=== PATIENT | male | born 1950 | race Caucasian/White ===

== ENCOUNTER 2017-03-02 09:55 | Inpatient (IN) | payer MEDICARE, OTHER ==
[2017-03-02] VITALS (20 sets, daily range): BP systolic 98–136; BP diastolic 70–93; PULSE 74–183; RESP 16–23; TEMP 97.9–98.6; O2SAT 91–98
[~2017-03-02] VITALS: Ht 170.2 cm; Wt 73.3 kg
[~2017-03-02 09:55] MED LIST: ALBU17I INH; AMBI10TA PO; EFFE150C PO; MEDR4PAK3 PO; OMEP20CA5 PO; ZITH250T PO
[2017-03-02] MEDS ORDERED: FLUO40CA PO (10:15)
[2017-03-02] MEDS ORDERED: RANI150T PO (10:15)
[2017-03-02] MEDS ORDERED: VENTAER INH (10:15)
[2017-03-02] MEDS ORDERED: MONT10TA4 PO (10:15)
[2017-03-02] MEDS ORDERED: FERR325T18 PO (10:15)
[2017-03-02] MEDS ORDERED: LEVO25TA4 PO (10:15)
[2017-03-02] MEDS ORDERED: SODIUM CHLORIDE 0.9% FLUSH 10 ML FLUSH IVF PRN (10:45)
[2017-03-02] MEDS ORDERED: methylPREDNISolone SOD SUCC 125 MG/2 ML VIAL IV PUSH ONE ×2 (10:45)
[2017-03-02 11:02] LABS: AUTOMATED NEUTROPHIL # 13.2 TH/MM3 (1.8-7.7); BASOPHIL # 0.1 TH/MM3 (0-0.2); BASOPHIL % 0.5 % (0.0-2.0); EOSINOPHIL # 0.3 TH/MM3 (0-0.4); EOSINOPHIL % 1.9 % (0.0-4.0); HEMATOCRIT 41.6 % (39.0-51.0); HEMO FLAGS DIFF FINAL; LYMPH % 5.5 % (9.0-44.0); LYMPHOCYTE # 0.9 TH/MM3 (1.0-4.8); MEAN CELL VOLUME 83.8 FL (80.0-100.0); MEAN CORPUSCULAR HEMOGLOBIN 27.4 PG (27.0-34.0); MEAN CORPUSCULAR HGB CONC 32.7 % (32.0-36.0); MONO % 6.7 % (0.0-8.0); NEUT % 85.4 % (16.0-70.0); PLATELET COUNT 618 TH/MM3 (150-450); RED BLOOD COUNT 4.96 MIL/MM3 (4.50-5.90); RED CELL DISTRIBUTION WIDTH 12.1 % (11.6-17.2); WHITE BLOOD COUNT 15.5 TH/MM3 (4.0-11.0)
--- NOTE | 2017-03-02 11:06 | RADRPT ---
EXAM DATE/TIME: 03/02/2017 10:57 [facility] COMPARISON: No previous studies available for comparison. INDICATIONS : Short of breath. Right chest pain. MEDICAL HISTORY : Chronic obstructive pulmonary disease. Asthma. SURGICAL HISTORY : None. ENCOUNTER: Initial ACUITY: 3 days PAIN SCORE: 4/10 LOCATION: Right chest FINDINGS: Hazy opacity in the right mid to lower lung zones. Cardiomediastinal contours are within normal limit s. Bony thorax is intact. CONCLUSION: 1. Probable small right pleural effusion with associated right lower lobe airspace disease, presumabl y compressive atelectasis. Consider formal PA and lateral views of chest for better evaluation. Damian Salamanca MD on March 02, 2017 at 11:03 Board Certified Radiologist. This report was verified electronically.
[2017-03-02] MEDS: RESP: ALBUTEROL 2.5 MG/IPRATROPIUM 0.5 MG NEB (SCH) INH (11:10)
[2017-03-02 11:12] LABS: CHLORIDE 101 MEQ/L (98-107); POTASSIUM 3.6 MEQ/L (3.5-5.1); SODIUM (NA) 136 MEQ/L (136-145)
[2017-03-02 11:16] LABS: ANION GAP 9 MEQ/L (5-15); BICARBONATE 26.3 MEQ/L (21.0-32.0); BLOOD UREA NITROGEN 16 MG/DL (7-18)
[2017-03-02 11:19] LABS: ALT (GPT) 11 U/L (12-78); AST (GOT) 11 U/L (15-37); GLOMERULAR FILTRATION RATE 67 ML/MIN (>89)
[2017-03-02 11:21] LABS: TOTAL BILIRUBIN ADULT 0.4 MG/DL (0.2-1.0)
[2017-03-02 11:22] LABS: ALKALINE PHOSPHATASE 85 U/L (45-117)
--- NOTE | 2017-03-02 11:38 | PD ---
HPI Chief Complaint: Respiratory Symptoms Time Seen by Provider: 10:25 Travel History International Travel<30 days: No Contact w/Intl Traveler<30days: No Traveled to known affect area: No History of Present Illness HPI This is a 66-year-old male who presents to the emergency department with shortness of breath it's been going on for 3 days, constant, moderate severity, worse with exertion and improved with rest. He says he feels like he has bronchitis. He is a nonproductive cough. He denies any fevers or chills. He says he's had bronchitis in the past and it flares up from time to time. He also recently drove from [place] to come visit his family for Thanksgiving. He is reporting right sided pleuritic chest pain, intermittent, and his says he's been clutching his back and his right flank. PFSH Past Medical History Asthma: Yes Depression: Yes Cancer: No COPD: Yes Diabetes: No Diminished Hearing: No GERD: Yes Glaucoma: No Hepatitis: No Hiatal Hernia: No Hypertension: No Respiratory: Yes (Asthma) Thyroid Disease: Yes Influenza Vaccination: No Past Surgical History Abdominal Surgery: Yes (INGUINAL HERNIA REPAIR) Other Surgery: Yes (RT GROIN REPAIR A CHILD) Social History Alcohol Use: No Tobacco Use: No Substance Use: No Allergies-Medications (Allergen,Severity, Reaction): Coded Allergies: No Known Allergies (Verified Allergy, Mild, 03/02/17) Reported Meds & Prescriptions Reported Meds & Active Scripts Active Reported Ranitidine (Ranitidine HCl) 150 Mg Tab 150 Mg PO DAILY Fluoxetine (Fluoxetine HCl) 40 Mg Cap 40 Cap PO DAILY Ventolin Hfa 18 GM Inh (Albuterol Sulfate) 90 Mcg/Act Aer 2 Puff INH Q4-6H PRN Montelukast (Montelukast Sodium) 10 Mg Tab 10 Mg PO HS Ferrous Sulfate 325 Mg (65 Mg Iron) Tablet 325 Mg PO DAILY Levothyroxine (Levothyroxine Sodium) 25 Mcg Tab 25 Mcg PO DAILY Review of Systems Except as stated in HPI: all other systems reviewed are Neg Physical Exam Narrative GENERAL:Well appearing, no acute distress SKIN: Focused skin assessment warm and dry. HEAD: Atraumatic. Normocephalic. EYES: Pupils equal and round. No injection or drainage. ENT: Moist mucous membranes NECK: Trachea midline. CARDIOVASCULAR: Regular rate and rhythm. No murmur appreciated. RESPIRATORY: Rales in the right lower lung with diminished breath sounds on the right. No tachypnea or increased work of breathing. GASTROINTESTINAL: Abdomen soft, non-tender, nondistended. MUSCULOSKELETAL: No obvious deformities. NEUROLOGICAL: Awake and alert. No obvious cranial nerve deficits. Moving all extremities. PSYCHIATRIC: Appropriate mood and affect; insight and judgment normal. Data Data Last Documented VS Vital Signs Date Time Temp Pulse Resp B/P (MAP) Pulse Ox O2 Delivery O2 Flow Rate FiO2 03/02/17 12:53 96 16 120/86 (97) 95 Nasal Cannula 2.00 03/02/17 09:57 97.9 Orders Orders Complete Blood Count With Diff (03/02/17 10:34) Comprehensive Metabolic Panel (03/02/17 10:34) D-Dimer (03/02/17 10:34) Iv Access Insert/Monitor (03/02/17 10:34) Ecg Monitoring (03/02/17 10:34) Oximetry (03/02/17 10:34) Oxygen Administration (03/02/17 10:34) Chest, Single Ap (03/02/17 10:34) Sodium Chloride 0.9% Flush (Ns Flush) (03/02/17 10:45) Methylprednisolone So Succ Inj (Solumedr (03/02/17 10:45) Methylprednisolone So Succ Inj (Solumedr (03/02/17 10:45) Albuterol-Ipratropium Neb (Duoneb Neb) (03/02/17 10:45) Ct Pulmonary Angiogram (03/02/17 ) Iohexol 350 Inj (Omnipaque 350 Inj) (03/02/17 11:58) B-Type Natriuretic Peptide (03/02/17 12:12) Lactic Acid (03/02/17 12:18) Blood Culture (03/02/17 12:18) Cefepime Inj (Maxipime Inj) (03/02/17 12:30) Azithromycin (Zithromax) (03/02/17 12:30) Electrocardiogram (03/02/17 ) Metoprolol Tartrate Inj (Lopressor Inj) (03/02/17 12:45) Admit Order (Ed Use Only) (03/02/17 12:54) Labs Laboratory Tests Test 03/02/17 10:50 03/02/17 12:30 White Blood Count 15.5 TH/MM3 Red Blood Count 4.96 MIL/MM3 Hemoglobin 13.6 GM/DL Hematocrit 41.6 % Mean Corpuscular Volume 83.8 FL Mean Corpuscular Hemoglobin 27.4 PG Mean Corpuscular Hemoglobin Concent 32.7 % Red Cell Distribution Width 12.1 % Platelet Count 618 TH/MM3 Mean Platelet Volume 7.8 FL Neutrophils (%) (Auto) 85.4 % Lymphocytes (%) (Auto) 5.5 % Monocytes (%) (Auto) 6.7 % Eosinophils (%) (Auto) 1.9 % Basophils (%) (Auto) 0.5 % Neutrophils # (Auto) 13.2 TH/MM3 Lymphocytes # (Auto) 0.9 TH/MM3 Monocytes # (Auto) 1.0 TH/MM3 Eosinophils # (Auto) 0.3 TH/MM3 Basophils # (Auto) 0.1 TH/MM3 CBC Comment DIFF FINAL Differential Comment D-Dimer Quantitative (PE/DVT) 1.93 MG/L FEU Blood Urea Nitrogen 16 MG/DL Creatinine 1.10 MG/DL Random Glucose 98 MG/DL Total Protein 6.8 GM/DL Albumin 2.4 GM/DL Calcium Level 8.6 MG/DL Alkaline Phosphatase 85 U/L Aspartate Amino Transf (AST/SGOT) 11 U/L Alanine Aminotransferase (ALT/SGPT) 11 U/L Total Bilirubin 0.4 MG/DL Sodium Level 136 MEQ/L Potassium Level 3.6 MEQ/L Chloride Level 101 MEQ/L Carbon Dioxide Level 26.3 MEQ/L Anion Gap 9 MEQ/L Estimat Glomerular Filtration Rate 67 ML/MIN Lactic Acid Level 3.1 mmol/L B-Type Natriuretic Peptide 8 PG/ML [facility] Medical Decision Making Medical Screen Exam Complete: Yes Emergency Medical Condition: Yes Interpretation(s) EKG: EKG: Sinus tachycardia with no ST changes Leukocytosis of 15 with 85% neutrophils Lactic acid is 3.1 D-dimer is 1.9 Last 24 hours Impressions Chest X-Ray 03/02/17 1034 Signed Impressions: Service Date/Time: Thursday, March 02, 2017 10:57 - CONCLUSION: 1. Probable small right pleural effusion with associated right lower lobe airspace disease , presumably compressive atelectasis. Consider formal PA and lateral views of chest for better evaluation. Damian Salamanca MD CT Angiography 03/02/17 0000 Signed Impressions: Service Date/Time: Thursday, March 02, 2017 11:49 - CONCLUSION: Moderate size right pleural effusion with adjacent passive atelectasis. No evidence for pulmonary embolism. Fadi Lopez MD Differential Diagnosis Pneumonia, pulmonary embolism, COPD exacerbation, congestive heart failure, malignancy Narrative Course This is a 66-year-old male who presents to the emergency department with increasing cough, shortness of breath and chest pain mostly on the right side of his chest. He was placed on a monitor and an IV was established. He is found to be tachycardic and slightly hypoxic. He was given serial bronchodilator treatments and his symptoms improved some. Labs demonstrate a leukocytosis and a lactic acid of 3.1 with a normal BNP. He was given 2 L of IV fluid, cultures were obtained and he was given cefepime and azithromycin. He also had 3 short episodes of narrow complex tachycardia in the emergency department. I administered 5 mg of IV metoprolol and the symptoms subsided. CT imaging demonstrates a moderate sized pleural effusion on the right. Patient has a history of histoplasmosis as a child and he has recurrent infections in the right lung. I think the patient requires continued antibiotic therapy, telemetry, and a thoracentesis as an inpatient. He will be admitted to Dr. Guadarrama. Critical Care Narrative Aggregate critical care time was 40 minutes. Time to perform other separately billable procedures was not included in the critical care time. My time did not include minutes spent treating any other patients simultaneously or on activities that did not directly contribute to the patient's treatment. The services I provided to this patient were to treat and/or prevent clinically significant deterioration that could result in: Disability, I provided critical care services requiring my management, as noted below: Chart data review, documentation time, medication orders and management, vital sign assessments/reviewing monitor data, ordering and reviewing lab tests, ordering and interpreting/reviewing x-rays and diagnostic studies, care of the patient and discussion of the patient with the admitting physicians. Diagnosis Primary Impression: Pleural effusion Additional Impression: SVT (supraventricular tachycardia) Admitting Information Admitting Physician Requests: Admit Jo Ann Caceres MD Mar 02, 2017 11:38
[2017-03-02] MEDS ORDERED: IOHEXOL 350 MG/ML 10 ML VIAL (for RAD DIAG) IVCONTRAST ONE (11:58)
--- NOTE | 2017-03-02 12:12 | RADRPT ---
EXAM DATE/TIME: 03/02/2017 11:49 [facility] COMPARISON: No previous studies available for comparison. INDICATIONS : Short of breath. Right chest pain. IV CONTRAST: 75 cc Omnipaque 350 (iohexol) IV RADIATION DOSE: 15.32 CTDIvol (mGy) MEDICAL HISTORY : Chronic obstructive pulmonary disease. Gastroesophageal reflux disease. Asthma. Histoplasmosis. SURGICAL HISTORY : Inguinal hernia repair. ENCOUNTER: Initial ACUITY: 2 days PAIN SCALE: 4/10 LOCATION: Right chest TECHNIQUE: Volumetric scanning of the chest was performed using a pulmonary embolism protocol MIP images were re constructed. Using automated exposure control and adjustment of the mA and/or kV according to patien t size, radiation dose was kept as low as reasonably achievable to obtain optimal diagnostic quality images. DICOM format image data is available electronically for review and comparison. Follow-up recommendations for detected pulmonary nodules are based at a minimum on nodule size and pa tient risk factors according to Fleischner Society Guidelines. FINDINGS: PULMONARY ARTERIES: No filling defects are seen in the pulmonary arteries through the segmental level. LUNGS: There is no consolidation or pneumothorax other than passive atelectasis right lung base. No concern ing pulmonary nodule is visualized. PLEURAE: There is no pleural thickening but there is a large right pleural effusion. MEDIASTINUM: There is good visualization of the great vessels of the middle mediastinum. No evidence of mediastin al or hilar adenopathy/mass. MUSCULOSKELETAL: Within normal limits for patient age. MISCELLANEOUS: The visualized upper abdominal organs demonstrate no acute abnormality. Moderate hiatal hernia CONCLUSION: Moderate size right pleural effusion with adjacent passive atelectasis. No evidence for pulmonary emb olism. Fadi Lopez MD on March 02, 2017 at 12:09 Board Certified Radiologist. This report was verified electronically.
[2017-03-02] MEDS ORDERED: CEFEPIME INJ 2,000 MG in SODIUM CHLORIDE 0.9% INJ 100 ML IV ONE (12:30)
[2017-03-02] MEDS ORDERED: AZITHROMYCIN 250 MG TAB PO ONE (12:30)
[2017-03-02] MEDS ORDERED: METOPROLOL TARTRATE 5 MG/5 ML VIAL IV PUSH ONE (12:45)
[2017-03-02] MEDS ORDERED: ONDANSETRON HCL 4 MG/2 ML VIAL IV PUSH ONE (13:15)
[2017-03-02] MEDS ORDERED: SODIUM CHLOR 0.9% 1000 ML INJ 1,000 ML IV ONE ×2 (13:15)
[2017-03-02] MEDS ORDERED: SODIUM CHLORIDE 0.9% FLUSH 10 ML FLUSH IV FLUSH PRN (13:30)
--- NOTE | 2017-03-02 13:43 | HHI.HP ---
HPI Service [facility] Primary Care Physician Non-Staff Admission Diagnosis svt, pleural effusion Diagnoses: (1) Sepsis Diagnosis: Principal (2) Leucocytosis Diagnosis: Principal (3) Pleural effusion Diagnosis: Principal (4) SVT (supraventricular tachycardia) Diagnosis: Principal Chief Complaint: Patient brought in by his is they're worried about his respiratory status Travel History International Travel<30 Days: No Contact w/Intl Traveler <30 Da: No Traveled to Known Affected Are: No History of Present Illness Written by Bienvenido Rachel, acting as scribe for Dr. Guadarrama on 03/02/17 at 13 :43. 66-year-old male with known history of childhood histoplasmosis, chronic obstructive pulmonary disease, hypothyroidism who was brought to the hospital by his because she did not like the way he looked. Patient is down here visiting family for the last 3 days from [place]. The patient indicates that his noticed that he was not sleeping well last night and I just way he looked she knew something was wrong so she brought him to the hospital for evaluation. The patient indicates that he does have childhood histoplasmosis and does get upper respiratory infections approximately every other year. Patient denies any symptoms to include fever, chills, runny nose, sore throat, abdominal pain, diarrhea. Patient states that he has had right sided rib pain for the last 3 days. He has had a dry nonproductive cough. Patient denied any actual anterior chest pain, radiation of pain, nausea, vomiting, diaphoresis. Patient has chronic shortness of breath and dyspnea and does not indicate any worsening. He does use a nebulizer at home on a regular basis for the last 3 months. Patient is not on any outpatient oxygen. Review of Systems Respiratory: COMPLAINS OF: Cough Cardiovascular: COMPLAINS OF: Chest pain Except as stated in HPI: all other systems reviewed are Neg Past Family Social History Past Medical History Histoplasmosis Hypothyroidism Anxiety depression Chronic obstructive pulmonary disease Past Surgical History Inguinal hernia repair Right ankle surgery Reported Medications Reported Meds & Active Scripts Active Reported Ranitidine (Ranitidine HCl) 150 Mg Tab 150 Mg PO DAILY Fluoxetine (Fluoxetine HCl) 40 Mg Cap 40 Cap PO DAILY Ventolin Hfa 18 GM Inh (Albuterol Sulfate) 90 Mcg/Act Aer 2 Puff INH Q4-6H PRN Montelukast (Montelukast Sodium) 10 Mg Tab 10 Mg PO HS Ferrous Sulfate 325 Mg (65 Mg Iron) Tablet 325 Mg PO DAILY Levothyroxine (Levothyroxine Sodium) 25 Mcg Tab 25 Mcg PO DAILY Allergies: Coded Allergies: No Known Allergies (Verified Allergy, Mild, 03/02/17) Family History Reviewed is significant for mother with dementia Social History Patient states that he smoked a long time ago and only for very short period time. Denies any alcohol or illicit drugs Physical Exam Vital Signs Vital Signs Date Time Temp Pulse Resp B/P (MAP) Pulse Ox O2 Delivery O2 Flow Rate FiO2 03/02/17 13:00 96 16 118/78 (91) 95 Nasal Cannula 2.00 03/02/17 12:53 96 16 120/86 (97) 95 Nasal Cannula 2.00 03/02/17 12:44 123 03/02/17 12:41 177 16 119/76 (90) 91 03/02/17 12:20 118 18 103/70 (81) 93 Room Air 03/02/17 12:10 183 03/02/17 11:02 100 17 115/80 (92) 95 Room Air 03/02/17 10:52 Room Air 03/02/17 10:52 94 Room Air 03/02/17 10:52 91 18 131/93 (106) 94 Room Air 03/02/17 10:10 95 Room Air 03/02/17 09:57 97.9 115 16 121/88 (99) 94 Physical Exam GENERAL: Well-developed, well-nourished, in no acute distress. alert and orientated HEENT: Head is normocephalic without any lesions or masses noted. Facial features are symmetric. Eyes: Pupils equal round reactive to light. Extraocular muscles are intact. Conjunctivae were clear. Oropharyngeal: Pharynx without any erythema edema. Tongue is midline without deviation. Buccal mucosa is moist without any masses or lesions NECK: Supple without any masses. Trachea midline no deviation. No JVD, no bruits are appreciated CARDIAC: Regular rhythm, regular rate. S1/S2 are heard. No murmurs gallops or rubs. LUNGS: Diminished breath sounds noted right lower lung field. Clear to auscultation bilaterally. No wheeze, rhonchi or rales. No use of accessory muscles on inspiration or expiration. ABDOMEN: Soft, nontender. Nondistended. Bowel sounds heard in all 4 quadrants. No organomegaly or masses. Negative rebound, negative guarding EXTREMITIES: No edema, pulses are equal bilaterally. No cyanosis or clubbing NEUROLOGY: Mood and affect appear appropriate. Cranial nerves II through XII grossly intact. Muscle strength 5/5 in upper and lower extremities bilaterally. Deep tendon reflexes are 2+ in upper and lower extremities bilaterally. Laboratory Laboratory Tests Test 03/02/17 10:50 03/02/17 12:30 White Blood Count 15.5 Red Blood Count 4.96 Hemoglobin 13.6 Hematocrit 41.6 Mean Corpuscular Volume 83.8 Mean Corpuscular Hemoglobin 27.4 Mean Corpuscular Hemoglobin Concent 32.7 Red Cell Distribution Width 12.1 Platelet Count 618 Mean Platelet Volume 7.8 Neutrophils (%) (Auto) 85.4 Lymphocytes (%) (Auto) 5.5 Monocytes (%) (Auto) 6.7 Eosinophils (%) (Auto) 1.9 Basophils (%) (Auto) 0.5 Neutrophils # (Auto) 13.2 Lymphocytes # (Auto) 0.9 Monocytes # (Auto) 1.0 Eosinophils # (Auto) 0.3 Basophils # (Auto) 0.1 CBC Comment DIFF FINAL Differential Comment D-Dimer Quantitative (PE/DVT) 1.93 Blood Urea Nitrogen 16 Creatinine 1.10 Random Glucose 98 Total Protein 6.8 Albumin 2.4 Calcium Level 8.6 Alkaline Phosphatase 85 Aspartate Amino Transf (AST/SGOT) 11 Alanine Aminotransferase (ALT/SGPT) 11 Total Bilirubin 0.4 Sodium Level 136 Potassium Level 3.6 Chloride Level 101 Carbon Dioxide Level 26.3 Anion Gap 9 Estimat Glomerular Filtration Rate 67 Lactic Acid Level 3.1 B-Type Natriuretic Peptide 8 Date/Time Source Procedure Growth Status 03/02/17 12:33 Blood Peripheral Aerobic Blood Culture Pending Received 03/02/17 12:33 Blood Peripheral Anaerobic Blood Culture Pending Received Result Diagram: 03/02/17 1050 03/02/17 1050 Imaging Last Impressions Chest X-Ray 03/02/17 1034 Signed Impressions: Service Date/Time: Thursday, March 02, 2017 10:57 - CONCLUSION: 1. Probable small right pleural effusion with associated right lower lobe airspace disease , presumably compressive atelectasis. Consider formal PA and lateral views of chest for better evaluation. Damian Salamanca MD CT Angiography 03/02/17 0000 Signed Impressions: Service Date/Time: Thursday, March 02, 2017 11:49 - CONCLUSION: Moderate size right pleural effusion with adjacent passive atelectasis. No evidence for pulmonary embolism. Fadi Lopez MD Septic Shock Reassessment Heart: Other (supraventricular tachycardia) Lungs: Diminished (mainly right lower lung) Skin: Warm, [place] Peripheral Pulses: Bounding Right Radial Bounding Left Radial Caprini VTE Risk Assessment Caprini VTE Risk Assessment: Mod/High Risk (score >= 2) Caprini Risk Assessment Model Point Value = 1 Point Value = 2 Point Value = 3 Point Value = 5 Age 41-60 Minor surgery BMI > 25 kg/m2 Swollen legs Varicose veins or History of unexplained or recurrent spontaneous Oral contraceptives or hormone replacement Sepsis (< 1 month) Serious lung disease, including pneumonia (< 1 month) Abnormal pulmonary function Acute myocardial infarction Congestive heart failure (< 1 month) History of inflammatory bowel disease Medical patient at bed rest Age 61-74 Arthroscopic surgery Major open surgery (> 45 min) Laparoscopic surgery (> 45 min) Malignancy Confined to bed (> 72 hours) Immobilizing plaster cast Central venous access Age >= 75 History of VTE Family history of VTE Factor V Leiden Prothrombin [id number] Lupus anticoagulant Anticardiolipin antibodies Elevated serum homocysteine Heparin-induced thrombocytopenia Other congenital or acquired thrombophilia Stroke (< 1 month) Elective arthroplasty Hip, pelvis, or leg fracture Acute spinal cord injury (< 1 month) Prophylaxis Regimen Total Risk Factor Score Risk Level Prophylaxis Regimen 0-1 Low Early ambulation 2 Moderate Order ONE of the following: *Sequential Compression Device (SCD) *Heparin 5000 units SQ BID 3-4 Higher Order ONE of the following medications: *Heparin 5000 units SQ TID *Enoxaparin/Lovenox 40 mg SQ daily (WT < 150 kg, CrCl > 30 mL/min) *Enoxaparin/Lovenox 30 mg SQ daily (WT < 150 kg, CrCl > 10-29 mL/min) *Enoxaparin/Lovenox 30 mg SQ BID (WT < 150 kg, CrCl > 30 mL/min) AND/OR *Sequential Compression Device (SCD) 5 or more Highest Order ONE of the following medications: *Heparin 5000 units SQ TID (Preferred with Epidurals) *Enoxaparin/Lovenox 40 mg SQ daily (WT < 150 kg, CrCl > 30 mL/min) *Enoxaparin/Lovenox 30 mg SQ daily (WT < 150 kg, CrCl > 10-29 mL/min) *Enoxaparin/Lovenox 30 mg SQ BID (WT < 150 kg, CrCl > 30 mL/min) AND *Sequential Compression Device (SCD) Assessment and Plan Problem List: (1) Pleural effusion ICD Code: J90 - Pleural effusion, not elsewhere classified Status: Acute (2) Sepsis ICD Code: A41.9 - Sepsis, unspecified organism (3) SVT (supraventricular tachycardia) ICD Code: I47.1 - Supraventricular tachycardia Status: Acute (4) Leucocytosis ICD Code: D72.829 - Elevated white blood cell count, unspecified Assessment and Plan 66 yrs old man Sepsis Patient met criteria with leukocytosis, supraventricular tachycardia, lactic acidosis, possible upper respiratory infection, empyema with pleural effusion Blood cultures are pending at this time Will need to obtain influenza testing, sputum culture, Legionella testing, pneumococcal testing, urinalysis Patient started on cefepime, will continue this time and add Flagyl Right lung pleural effusion with associated shortness of breath, pain, unknown etiology Will need ultrasound-guided thoracentesis today. We'll send fluid for studies Obtain echocardiogram Further recommendations once studies have been reviewed Supraventricular tachycardia with heart rate in the 180s Responsive to vagal procedures Status post Lopressor 5 mg IV Continue telemetry Leukocytosis Continue monitor CBC Chronic obstructive pulmonary disease Continue O2 someone takes maintain O2 sats greater than 92% duo nebs every 6 hours while awake and every 2 hours as needed Incentive spirometry Hypothyroidism Continue home medications DVT prevention Sequential compression devices, avoid chemical prophylaxis secondary to impending procedure This note was transcribed by emily Rachel. I, Dr. Hero Guadarrama personally performed the history, physical exam, and medical decision making; and confirmed the accuracy of the information in the transcribed note. Authenticated by Dr. Hero Guadarrama on 03/02/17 at 13:43. Code Status Full code Discussed Condition With Patient, ED physician Physician Certification 2 Midnight Certification Type: Admission for Inpatient Services Order for Inpatient Services The services are ordered in accordance with Medicare regulations or non- Medicare payer requirements, as applicable. In the case of services not specified as inpatient-only, they are appropriately provided as inpatient services in accordance with the 2-midnight benchmark. Estimated LOS (days): 2 days is the estimated time the patient will need to remain in the hospital, assuming treatment plan goals are met and no additional complications. Post-Hospital Plan: Not yet determined Bienvenido Rachel Mar 02, 2017 13:43 Hero Guadarrama MD Mar 02, 2017 13:43
[2017-03-02] MEDS: metroNIDAZOLE 500 MG INJ 100 ML IV SCH ×2 (14:07→21:35)
[2017-03-02] MEDS ORDERED: TEMAZEPAM 15 MG CAP PO PRN (14:15)
[2017-03-02] MEDS ORDERED: DOCUSATE SODIUM 100 MG CAP PO PRN (14:15)
[2017-03-02] MEDS ORDERED: MAGNESIUM HYDROXIDE SUSP 30 ML CUP PO PRN (14:15)
[2017-03-02] MEDS ORDERED: ONDANSETRON HCL 4 MG/2 ML VIAL IV PUSH PRN (14:15)
[2017-03-02] MEDS ORDERED: ALUMINUM/MAGNESIUM/SIMETH 30 ML CUP PO PRN (14:15)
[2017-03-02] MEDS ORDERED: ACETAMINOPHEN 325 MG TAB PO PRN (14:15)
[2017-03-02] MEDS ORDERED: RESP: ALBUTEROL 2.5 MG/IPRATROPIUM 0.5 MG NEB (PRN) NEB (14:30)
[2017-03-02 14:45] LABS: APTT (PATIENT) 36.9 SEC (24.3-30.1); PROTHROMBIN TIME - PATIENT 11.4 SEC (9.8-11.6)
[2017-03-02 14:45] LABS: CREATINE KINASE 18 U/L (39-308)
[2017-03-02] MEDS: ACETAMINOPHEN 325 MG TAB PO PRN (16:22)
[2017-03-02 17:05] LABS: BLOOD, URINE NEG (NEG); GLUCOSE,URINE NEG (NEG); KETONE, URINE 40 mg/dL (NEG); NITRITE,URINE NEG (NEG); PH, URINE 5.5 (5.0-8.5)
[2017-03-02 17:09] LABS: METHOD OF COLLECTION CLEAN CATCH; RBC, URINE 0-3 /hpf (0-3); URINE COLOR YELLOW (YELLW/STRAW)
[2017-03-02 17:10] LABS: COMMENT (UR) CULT NOT INDICATED; CULTURE IF INDICATED CULT NOT INDICATED; SQUAMOUS EPITHELIAL CELL URINE 0-5 /hpf (0-5)
--- NOTE | 2017-03-02 18:51 | RADRPT ---
EXAM DATE/TIME: 03/02/2017 16:03 [facility] COMPARISON: No previous studies available for comparison. INDICATIONS : Right pleural effusion. MEDICAL HISTORY : Thyroid disease. Right pleural effusion. SURGICAL HISTORY : ORIF right ankle. Inguinal hernia repair. ENCOUNTER: Subsequent ACUITY: 3 days PAIN SCORE: 4/10 LOCATION: Right chest FLUID: Total volume of 600 cc of clear, red fluid was removed. Fluid was sent to lab for ordered studies. TECHNIQUE: 1. Ultrasound guidance for thoracentesis. 2. Thoracentesis. The risks, benefits, and alternatives to ultrasound guided thoracentesis were explained to the patien t in lay simple terms, including the risk of bleeding and infection. Written and verbal informed con sent was obtained. Appropriate area for thoracentesis was marked under ultrasound guidance with the patient in the uprig ht position. Overlying skin was prepped and draped in the usual sterile fashion and with local anest hetic, a dermatotomy was made with an 11 blade scalpel. A 6 [place] thoracentesis catheter was placed in the pleural space and fluid was removed. Catheter was then removed and a sterile dressing applie d. There were no immediate complications. The patient tolerated the procedure well and the left the ultrasound suite in stable condition. Chest radiograph is to be obtained. CONCLUSION: Uncomplicated ultrasound guided right thoracentesis. This pleural effusion is loculated. Jay De La Cruz Jr., MD on March 02, 2017 at 18:49 Board Certified Radiologist. This report was verified electronically.
--- NOTE | 2017-03-02 18:52 | RADRPT ---
EXAM DATE/TIME: 03/02/2017 18:25 CORRECTION Corrected on: March 07, 2017; fixed date and time [facility] COMPARISON: CHEST SINGLE AP, March 02, 2017, 10:57. INDICATIONS : Post right thoracentesis. MEDICAL HISTORY : Chronic obstructive pulmonary disease. Gastroesophageal reflux disease. Asthma. Histoplasmosis SURGICAL HISTORY : Inguinal hernia repair ENCOUNTER: Initial ACUITY: 1 day PAIN SCORE: 2/10 LOCATION: Right chest FINDINGS: A single portable frontal view the chest shows no pneumothorax following right-sided thoracentesis. T here is a reduction in size of the right effusion. Left lung is clear. Heart is normal in size. Basil ar atelectasis seen on the right. CONCLUSION: No pneumothorax following right thoracentesis. Jay De La Cruz Jr., MD on March 02, 2017 at 18:50 Board Certified Radiologist. Board Certified Radiologist. This report was verified electronically.
[2017-03-02 19:01] LABS: LACTIC ACID GHOST NOT REPORTABLE
[2017-03-02] MEDS: RESP: ALBUTEROL 2.5 MG/IPRATROPIUM 0.5 MG NEB (SCH) NEB (19:29)
[2017-03-02 19:40] LABS: PLEURAL FLUID LYMPHS 14 %
[2017-03-02 19:57] LABS: CREATINE KINASE 23 U/L (39-308)
[2017-03-02] MEDS: SODIUM CHLORIDE 0.9% FLUSH 10 ML FLUSH IV FLUSH SCH (19:59)
[2017-03-02 20:26] LABS: TOTAL PROTEIN,PLEURAL FLUID 4.2 GM/DL
[2017-03-02] MEDS: CEFEPIME INJ 2,000 MG in SODIUM CHLORIDE 0.9% INJ 100 ML IV SCH (22:10)
[2017-03-03] VITALS (11 sets, daily range): BP systolic 118–137; BP diastolic 88–89; PULSE 68–105; RESP 16–29; TEMP 98–98.2; O2SAT 93–96
[2017-03-03] MEDS: ACETAMINOPHEN 325 MG TAB PO PRN ×2 (00:13→06:11)
[2017-03-03 02:17] LABS: CHLORIDE 104 MEQ/L (98-107); POTASSIUM 4.1 MEQ/L (3.5-5.1); SODIUM (NA) 136 MEQ/L (136-145)
[2017-03-03 02:20] LABS: ANION GAP 8 MEQ/L (5-15); BLOOD UREA NITROGEN 19 MG/DL (7-18)
[2017-03-03 02:23] LABS: GLOMERULAR FILTRATION RATE 67 ML/MIN (>89)
[2017-03-03 02:28] LABS: CREATINE KINASE 28 U/L (39-308)
[2017-03-03] MEDS ORDERED: LEVOTHYROXINE SODIUM 25 MCG TAB PO SCH (06:00)
[2017-03-03] MEDS: metroNIDAZOLE 500 MG INJ 100 ML IV SCH (06:12)
[2017-03-03 07:02] LABS: AUTOMATED NEUTROPHIL # 17.9 TH/MM3 (1.8-7.7); BASOPHIL % 0.1 % (0.0-2.0); LYMPH % 2.8 % (9.0-44.0); LYMPHOCYTE # 0.5 TH/MM3 (1.0-4.8); MEAN CELL VOLUME 83.7 FL (80.0-100.0); MEAN CORPUSCULAR HEMOGLOBIN 27.4 PG (27.0-34.0); MEAN CORPUSCULAR HGB CONC 32.7 % (32.0-36.0); MONO % 2.1 % (0.0-8.0); RED BLOOD COUNT 4.54 MIL/MM3 (4.50-5.90); RED CELL DISTRIBUTION WIDTH 12.5 % (11.6-17.2); WHITE BLOOD COUNT 18.8 TH/MM3 (4.0-11.0)
[2017-03-03 07:18] LABS: HEMO FLAGS AUTO DIFF; PLATELET COUNT 625 TH/MM3 (150-450)
[2017-03-03 07:36] LABS: PLATELET ESTIMATE SMEAR HIGH (NORMAL); PLATELET MORPHOLOGY NORMAL (NORMAL); SCAN/DIFF AUTO DIFF CONFIRMED
[2017-03-03] MEDS: RESP: ALBUTEROL 2.5 MG/IPRATROPIUM 0.5 MG NEB (SCH) NEB (07:48)
[2017-03-03] MEDS: SODIUM CHLORIDE 0.9% FLUSH 10 ML FLUSH IV FLUSH SCH (09:15)
--- NOTE | 2017-03-03 10:44 | HHI.PR ---
Subjective Remarks Follow-up right pleural effusion/sepsis 03/03/17-patient seen and examined, he status post thoracentesis and reports significant improvement of shortness of breath. Patient states he would like to sign AMA because he needs to go back to [place] Objective Vitals Vital Signs Date Time Temp Pulse Resp B/P (MAP) Pulse Ox O2 Delivery O2 Flow Rate FiO2 03/03/17 09:00 98.1 88 23 134/89 (104) 95 03/03/17 08:30 93 Room Air 03/03/17 08:00 72 03/03/17 07:50 96 Nasal Cannula 2.00 03/03/17 07:00 99 Nasal Cannula 2.00 03/03/17 06:19 68 03/03/17 04:13 98.0 82 21 137/89 (105) 96 03/03/17 02:24 86 03/03/17 01:00 96 29 94 03/03/17 00:00 96 03/02/17 23:52 98.4 100 23 125/84 (98) 92 03/02/17 20:00 96 03/02/17 19:54 96 20 95 03/02/17 19:28 96 Nasal Cannula 2.00 03/02/17 19:03 98.6 88 19 131/76 (94) 91 03/02/17 16:00 98.0 94 19 125/81 (96) 92 03/02/17 16:00 92 03/02/17 15:15 92 03/02/17 15:00 03/02/17 15:00 97.9 92 23 136/90 (105) 94 03/02/17 14:25 92 20 126/81 (96) 92 Nasal Cannula 2.00 03/02/17 14:00 98 Nasal Cannula 2.00 03/02/17 14:00 92 20 125/83 (97) 98 Nasal Cannula 2.00 03/02/17 13:00 96 16 118/78 (91) 95 Nasal Cannula 2.00 03/02/17 12:53 96 16 120/86 (97) 95 Nasal Cannula 2.00 03/02/17 12:44 123 03/02/17 12:41 177 16 119/76 (90) 91 03/02/17 12:20 118 18 103/70 (81) 93 Room Air 03/02/17 12:10 183 03/02/17 11:02 100 17 115/80 (92) 95 Room Air 03/02/17 10:52 Room Air 03/02/17 10:52 94 Room Air 03/02/17 10:52 91 18 131/93 (106) 94 Room Air I/O 03/02/17 03/02/17 03/02/17 03/03/17 03/03/17 03/03/17 06:59 14:59 22:59 06:59 14:59 22:59 Intake Total 2162.4 ml 291 ml 200 ml 100 ml Output Total 150 ml 150 ml Balance 2162.4 ml 141 ml 50 ml 100 ml Intake Oral 0 ml 200 ml IV Total 2162.4 ml 291 ml 100 ml Output Urine Total 150 ml 150 ml # Voids 1 # Bowel Movements 0 0 Result Diagram: 03/03/17 0610 03/03/17 0150 Imaging Last Impressions Chest X-Ray 03/02/17 1034 Signed Impressions: Service Date/Time: Thursday, March 02, 2017 10:57 - CONCLUSION: 1. Probable small right pleural effusion with associated right lower lobe airspace disease , presumably compressive atelectasis. Consider formal PA and lateral views of chest for better evaluation. Damian Salamanca MD Thoracentesis Ultrasound 03/02/17 0000 Signed Impressions: Service Date/Time: Thursday, March 02, 2017 16:03 - CONCLUSION: Uncomplicated ultrasound guided right thoracentesis. This pleural effusion is loculated. Jay De La Cruz Jr., MD CT Angiography 03/02/17 0000 Signed Impressions: Service Date/Time: Thursday, March 02, 2017 11:49 - CONCLUSION: Moderate size right pleural effusion with adjacent passive atelectasis. No evidence for pulmonary embolism. Fadi Lopez MD Objective Remarks GENERAL: NAD SKIN: Warm and dry. HEAD: Normocephalic. EYES: No scleral icterus. No injection or drainage. NECK: Supple, trachea midline. No JVD or lymphadenopathy. CARDIOVASCULAR: Regular rate and rhythm without murmurs, gallops, or rubs. RESPIRATORY: Breath sounds equal bilaterally. No accessory muscle use. GASTROINTESTINAL: Abdomen soft, non-tender, nondistended. MUSCULOSKELETAL: No cyanosis, or edema. BACK: Nontender without obvious deformity. No CVA tenderness. Procedures s/p ultrasound-guided right thoracentesis 03/02/17 A/P Problem List: (1) Pleural effusion ICD Code: J90 - Pleural effusion, not elsewhere classified Status: Acute (2) Sepsis ICD Code: A41.9 - Sepsis, unspecified organism (3) SVT (supraventricular tachycardia) ICD Code: I47.1 - Supraventricular tachycardia Status: Acute (4) Leucocytosis ICD Code: D72.829 - Elevated white blood cell count, unspecified Assessment and Plan 66 yrs old man Sepsis Patient met criteria with leukocytosis, supraventricular tachycardia, lactic acidosis, possible upper respiratory infection, empyema with pleural effusion Currently on cefepime and Flagyl pending culture report Right lung pleural effusion with associated shortness of breath, pain, unknown etiology s/p ultrasound-guided thoracentesis 03/02/17 pending culture and cytology report 2-D echo pending Supraventricular tachycardia Resolved Responsive to vagal procedures Continue Lopressor 5 mg IV Continue telemetry Leukocytosis Continue monitor CBC Chronic obstructive pulmonary disease Continue O2 someone takes maintain O2 sats greater than 92% duo nebs every 6 hours while awake and every 2 hours as needed Incentive spirometry Hypothyroidism Continue home medications DVT prevention Sequential compression devices, avoid chemical prophylaxis secondary to impending procedure Hero Guadarrama MD Mar 03, 2017 10:44
--- NOTE | 2017-03-03 10:45 | PD.AMA ---
Against Medical Advice Note Diagnosis: (1) Pleural effusion (2) Sepsis (3) SVT (supraventricular tachycardia) (4) Leucocytosis Discharge Disposition: Against Medical Advice AMA Statement Patient Karl Childers has decided to leave the hospital against medical advice. This patient has the capacity to refuse care and understands the risks of leaving, including permanent disability and/or , and has had an opportunity to ask questions about his condition. The patient has been informed that he may return for care at any time, and follow up has been arranged/ advised. Hero Guadarrama MD Mar 03, 2017 10:45
[2017-03-03] MEDS: CEFEPIME INJ 2,000 MG in SODIUM CHLORIDE 0.9% INJ 100 ML IV SCH (11:27)
[2017-03-03] MEDS ORDERED: LEVO750T3 PO (11:51)
[2017-03-03] MEDS ORDERED: METR-1 PO (11:51)
--- NOTE | 2017-03-03 14:04 | ECHRPT ---
Indication: sob CONCLUSIONS The left ventricular systolic function is low normal with an estimated ejection fraction in the rang e of 50- 55%. Doppler parameters are consistent with impaired left ventricular relaxtion (grade 1 diastolic dysfun ction). Trace mitral valve regurgitation. Trace aortic valve regurgitation. There is mild tricuspid valve regurgitation. BP: / HR: Rhythm: MEASUREMENTS (Male / Female) Normal Values Technical Quality:Good 2D ECHO LV Diastolic Diameter PLAX 5.0 cm 4.2 - 5.9 / 3.9 - 5.3 cm LV Systolic Diameter PLAX 4.0 cm IVS Diastolic Thickness 1.2 cm 0.6 - 1.0 / 0.6 - 0.9 cm LVPW Diastolic Thickness 1.1 cm 0.6 - 1.0 / 0.6 - 0.9 cm LV Relative Wall Thickness 0.5 RV Internal Dim ED PLAX 3.2 cm M-MODE Aortic Root Diameter MM 4.6 cm LA Systolic Diameter MM 3.3 cm LA Ao Ratio MM 0.7 AV Cusp Separation MM 1.8 cm DOPPLER Mitral E Point Velocity 93.5 cm/s Mitral A Point Velocity 110.0 cm/s Mitral E to A Ratio 0.8 LV E' Lateral Velocity 7.0 cm/s Mitral E to LV E' Lateral Ratio 13.3 LV E' Septal Velocity 7.2 cm/s Mitral E to LV E' Septal Ratio 13.0 TR Peak Velocity 254.0 cm/s TR Peak Gradient 25.8 mmHg Right Atrial Pressure 10.0 mmHg Pulmonary Artery Systolic Pressu 35.8 mmHg Right Ventricular Systolic Press 35.8 mmHg FINDINGS LEFT VENTRICLE The left ventricular systolic function is low normal with an estimated ejection fraction in the rang e of 50- 55%. Normal left ventricular size. No regional wall motion abnormalities are present. Doppler parameters are consistent with impaired left ventricular relaxtion (grade 1 diastolic dysfun ction). Wall thickness is measured at the upper limits of normal. RIGHT VENTRICLE Normal right ventricular size and systolic function. LEFT ATRIUM The left atrial size is normal. RIGHT ATRIUM The right atrial size is normal. ATRIAL SEPTUM Normal atrial septal thickness without atrial level shunting by limited color doppler interrogation. AORTA The aortic root and proximal ascending aorta are normal in size on limited imaging. MITRAL VALVE Structurally normal mitral valve. Trace mitral valve regurgitation. AORTIC VALVE Trileaflet aortic valve. Trace aortic valve regurgitation. TRICUSPID VALVE There is mild tricuspid valve regurgitation. Structurally normal tricuspid valve. The estimated pulmonary arterial pressure is 35.8 mmHg. PULMONARY VALVE No pulmonary valve regurgitation or stenosis. VESSELS The inferior vena cava is normal in size. PERICARDIUM No pericardial effusion. Salvador Guzman DO (Electronically Signed) Final Date:03 March 2017 14:04
--- NOTE | 2017-03-03 14:36 | EKG ---
Date Performed: 03/03/2017 Time Performed: 01:42:35 PTAGE: 66 years EKG: Sinus rhythm WITH SINUS ARRHYTHMIA PROBABLE INFERIOR MYOCARDIAL INFARCTION, OLD ABNORMAL ECG PREVIOUS TRACING : 03/02/2017 20.00 Compared to prior tracing no significant change DOCTOR: Salvador Guzman Interpretating Date/Time 03/03/2017 14:34:57
--- NOTE | 2017-03-03 15:07 | EKG ---
Date Performed: 03/02/2017 Time Performed: 20:00:56 PTAGE: 66 years EKG: Sinus rhythm PROBABLE INFERIOR MYOCARDIAL INFARCTION ABNORMAL ECG PREVIOUS TRACING : 03/02/2017 12.18 Compared to the previous tracing, rate has decreased DOCTOR: Salvador Guzman Interpretating Date/Time 03/03/2017 15:06:26
--- NOTE | 2017-03-03 18:04 | EKG ---
Date Performed: 03/02/2017 Time Performed: 12:18:01 PTAGE: 66 years EKG: SINUS TACHYCARDIA WITH FREQUENT SUPRAVENTRICULAR PREMATURE COMPLEXES NONSPECIFIC T-WAVE ABN ORMALITY ABNORMAL RHYTHM ECG PREVIOUS TRACING : 03/02/2017 12.17 Compared to the previous tracing, rate has increased DOCTOR: Salvador Guzman Interpretating Date/Time 03/03/2017 18:03:29
== END 2017-03-03 12:30 | disposition left against medical advice (07) | DRG 872 ==
LOC: PHED 09:55 → PHEDA 12:55 → PHICU 14:55
PROVIDERS: ADMIT Hospitalist; ATTEND Hospitalist
PROC: 0W993ZZ Drainage of Right Pleural Cavity, Percutaneous Approach (ICD-10-PCS; principal; 2017-03-02)
DX: A41.9 Sepsis, unspecified organism (principal); J90 Pleural effusion, not elsewhere classified; J44.9 Chronic obstructive pulmonary disease, unspecified; I47.1 Supraventricular tachycardia; J06.9 Acute upper respiratory infection, unspecified; K21.9 Gastro-esophageal reflux disease without esophagitis; R09.02 Hypoxemia; E03.9 Hypothyroidism, unspecified; F41.8 Other specified anxiety disorders; Z87.891 Personal history of nicotine dependence
CPT/HCPCS: 32555; 71010; 71275; 80048; 80053; 81001; 82550; 82945; 83605; 83615; 83880; 84157; 84484; 85025; 85379; 85610; 85730; 87015; 87040; 87070; 87102; 87116; 87205; 87206; 87449; 87804; 88108; 88305; 89051; 93005; 93306; 94150; 94640; 94664; 96374; 96375; J0692; J2405; J2930; J7030; Q9967